=== PATIENT | female | born 1995 | race Caucasian/White ===

== ENCOUNTER 2020-08-26 09:37 | Outpatient (CLI) | payer BC, SELFPAY ==
[2020-08-26 10:06] LABS: Hematocrit 39.7 % (37.0-47.0); Hemoglobin 12.9 g/dL (12.0-15.0); Mean Corpuscular HGB Conc 32.5 g/dl (32-36); Mean Corpuscular Hemoglobin 28.9 pg (26-34); Mean Corpuscular Volume 88.8 fl (80-100); Mean Platelet Volume 8.9 fl (7.4-10.4); Platelet Count Result 376 k/mm3 (150-375); Red Blood Count 4.47 M/mm3 (4.2-5.4); Red Cell Distribution Width 12.4 % (11.5-14.5)
[2020-08-26 10:21] LABS: Alanine Aminotransferase 16 U/L (4-35); Albumin Level 4.3 g/dL (3.5-5.1); Alkaline Phosphatase 69 U/L (38-126); Anion Gap 9 mmol/L (8-16); Aspartate Amino Transferase 27 U/L (14-36); Bilirubin,Total 0.5 mg/dL (0.2-1.3); Blood Urea Nitrogen 7 mg/dL (7-17); CRP 0.8 mg/dL (<1.0); Calcium 9.4 mg/dL (8.4-10.2); Carbon Dioxide 24 mmol/L (22-30); Chloride 108 mmol/L (98-107); Estimated Glomerular Filt Rate > 60; Glucose 115 mg/dL (65-105); Potassium 3.9 mmol/L (3.4-5.0); Sodium 141 mmol/L (137-145)
[2020-08-26 10:32] LABS: Erythrocyte Sedimentation Rate 25 mm/hr (0-20)
== END 2020-08-26 09:38 | disposition home or self-care (01) ==
PROVIDERS: PCP Family Medicine; Visit Provider Nurse Practitioner Family
DX: K51.90 Ulcerative colitis, unspecified, without complications (principal)
CPT/HCPCS: 36415; 80053; 85027; 85652; 86140

== ENCOUNTER → 2020-11-27 01:49 | Outpatient (CLI) | payer BC, SELFPAY ==
[2020-11-28 14:52] LABS: SARS-CoV-2 RNA PCR Negative
== END ==
PROVIDERS: PCP Family Medicine; Visit Provider Internal Medicine Gastroenterology
DX: Z01.812 Encounter for preprocedural laboratory examination (principal); Z20.822 Contact with and (suspected) exposure to COVID-19
CPT/HCPCS: C9803; U0003; U0005

== ENCOUNTER 2020-12-01 01:07 | Day surgery (SDC) | payer BC, SELFPAY ==
[2020-11-19 15:18] VITALS: BMI 20.2
[2020-12-01 10:26] VITALS: BP 132/91; PULSE 128; RESP 14; TEMP 36.3; O2SAT 98; BMI 19.2
[2020-12-01] MEDS: LACTATED RINGERS 1,000 ML 150 ML IV CONT (10:32)
--- NOTE | 2020-12-01 10:51 | WPDANESEPPF ---
Anes - Initial Pre Proc Eval Procedure: Operation Date: 12/01/20 11:30 Proposed Procedures p Colonoscopy - Dave Thomas MD Date/Time: 12/01/20 10:51 Surgeon: Dave Thomas MD Pre Op Diagnosis: ulcerative colitis Patient Data Age: 25 Gender: F Height: 5 ft 3 in Weight: 49.3 kg Last Vital Signs Temp 97.3 F L 12/01/20 10:26 Pulse 128 H 12/01/20 10:26 Resp 14 12/01/20 10:26 BP 132/91 H 12/01/20 10:26 Pulse Ox 98 12/01/20 10:26 Allergies Allergy/AdvReac Type Severity Reaction Status Date / Time No Known Allergies Allergy Verified 12/01/20 10:24 Home Medications Medication Instructions Recorded Confirmed Type loratadine 10 mg tablet 10 mg PO DAILY 06/20/19 12/01/20 History multivitamin 1 tablet PO DAILY 06/20/19 12/01/20 History desogestrel-e.estradiol 0.15 1 tablet PO DAILY #84 tablet 05/27/20 12/01/20 Rx mg-0.02 mg(21)/e.estrad 0.01 mg(5) tablet mesalamine 1.2 gram tablet,delayed See Rx Instructions .ROUTE 06/25/20 12/01/20 Rx release .COMPLEX #180 tablet buspirone 5 mg tablet See Rx Instructions .ROUTE 09/21/20 12/01/20 Rx .COMPLEX #270 tablet Patient hx anesthesia problems: none Family hx anesthesia problems: none PMFSH Past Medical History Medical History (Updated 11/30/20 @ 13:07 by Andrew Rich DO) Chronic anxiety Dysmenorrhea Enterocolitis Ulcerative colitis Family History Family History Grandparent Diabetes mellitus Depression Family history of cardiovascular disease Cerebrovascular accident Family history of malignant neoplasm Breast cancer Ovarian cyst Father Hypertension Family history of elevated blood lipids Mother Hypertension Arthritis Psoriasis Social History Social History Smoking status: Never smoker Alcohol intake: current Drinks per week: 2 Living arrangements: alone Gender identity (if verbalized by the patient): Female Spiritual care concerns: No Anes - Eval Final PreProcedure Day of Procedure 12/01/20 10:51 Patient weight: normal Heart: regular rate and rhythm Lungs: clear to auscultation Airway: Mallampati scale class II Neurological: alert and oriented Last oral intake: >/= 8 hours ASA classification: II Emergent: no Anesthetic plan: proceed Anesthesia type and monitoring: general GIVS and standard monitoring Informed Consent: The patient's anesthetic plan and its attendant risks and benefits were discussed with the patient/family/POA. Questions were solicited and answers provided to the satisfaction of the patient/family/POA.
--- NOTE | 2020-12-01 11:43 | PM.HPGS ---
History of Present Illness History of Present Illness Consent: Risks, benefits, and alternatives have been discussed and questions answered. Patient agrees to proceed with procedure. Chief complaint: ulcerative colitis Narrative: Monet Rome is a 25 year old female with left sided UC diagnosed 2018 controlled with oral mesalamine, no acute issues Review of Systems Constitutional: Constitutional: Denies headache(s) and Denies weakness Eyes: Eyes: Denies blurry vision ENT: Reports Normal hearing present, Denies headache(s) and Denies neck pain Cardiovascular: Cardiovascular: Denies chest pain and Denies dyspnea Respiratory: Respiratory: Denies dyspnea Gastrointestinal: Gastrointestinal: Reports no additional gastrointestinal complaints Genitourinary: Genitourinary: Denies dysuria Musculoskeletal: Musculoskeletal: Denies neck pain Integumentary/Breasts: Skin/Breast: Denies dry skin Neurologic: Reports Normal hearing present, Denies headache(s) and Denies weakness Psychiatric: Psychiatric: Denies anxiety Endocrine: Endocrine: Denies change in body appearance Hematologic/Lymphatic: Hematologic/Lymphatic: Denies easy bleeding Allergic/Immunologic: Allergic/Immunologic: Denies urticaria PMF Past Medical History Medical History (Updated 12/01/20 @ 11:45 by Dave Thomas MD) Chronic anxiety Dysmenorrhea Enterocolitis Left sided ulcerative colitis Ulcerative colitis Family History Family History Grandparent Diabetes mellitus Depression Family history of cardiovascular disease Cerebrovascular accident Family history of malignant neoplasm Breast cancer Ovarian cyst Father Hypertension Family history of elevated blood lipids Mother Hypertension Arthritis Psoriasis Social History Social History Smoking status: Never smoker Alcohol intake: current Drinks per week: 2 Living arrangements: alone Gender identity (if verbalized by the patient): Female Spiritual care concerns: No Meds Home Medications and Allergies Home Medications Medication Instructions Recorded Confirmed Type loratadine 10 mg tablet 10 mg PO DAILY 06/20/19 12/01/20 History multivitamin 1 tablet PO DAILY 06/20/19 12/01/20 History desogestrel-e.estradiol 0.15 1 tablet PO DAILY #84 tablet 05/27/20 12/01/20 Rx mg-0.02 mg(21)/e.estrad 0.01 mg(5) tablet mesalamine 1.2 gram tablet,delayed See Rx Instructions .ROUTE 06/25/20 12/01/20 Rx release .COMPLEX #180 tablet buspirone 5 mg tablet See Rx Instructions .ROUTE 09/21/20 12/01/20 Rx .COMPLEX #270 tablet Allergies Allergy/AdvReac Type Severity Reaction Status Date / Time No Known Allergies Allergy Verified 12/01/20 10:24 Vital Signs Vital Signs - 24 hr 12/01/20 10:26 Temperature 97.3 F L Pulse Rate 128 H Respiratory Rate 14 Blood Pressure 132/91 H Pulse Oximetry 98 Exam Const: General: comfortable and no acute distress HENMT: General nose exam: Normal nares present Eyes: General: appearance normal, both eyes and all related structures Neck: Neck: no JVD Resp: Auscultation: clear to auscultation bilaterally Cardio: Rate: regular rate Rhythm: regular rhythm GI: Inspection: non-distended GI Palp: Yes Soft to palpation Skin: General skin exam: normal color Neuro: General: gait normal Speech: normal speech Extrem: General: normal to inspection Psych: Mental Status: mental status grossly normal Assessment and Plan Assessment and plan (1) Left sided ulcerative colitis: Code(s): K51.50 - Left sided colitis without complications Status: Acute Assessment and Plan: colonoscopy to assess mucosa, on medication with control of symptoms
[2020-12-01 11:45] VITALS: BP 91/62; PULSE 97; RESP 22; O2SAT 97
[2020-12-01 11:55] VITALS: BP 107/62; PULSE 88; RESP 25; O2SAT 95
[2020-12-01 12:05] VITALS: BP 101/64; PULSE 100; RESP 27; O2SAT 100
== END 2020-12-01 12:13 | disposition home or self-care (01) ==
PROVIDERS: PCP Family Medicine; Visit Provider Internal Medicine Gastroenterology
PROC: 0DJD8ZZ Inspection of Lower Intestinal Tract, Via Natural or Artificial Opening Endoscopic (ICD-10-PCS; CPT 45378; principal; 2020-12-01 11:30)
DX: K51.50 Left sided colitis without complications (principal); D12.4 Benign neoplasm of descending colon; K64.8 Other hemorrhoids; F41.9 Anxiety disorder, unspecified
CPT/HCPCS: 45380; 88305; C9803; J2704; J7120; U0003; U0005

== ENCOUNTER 2021-02-22 09:27 | Outpatient (CLI) | payer BC, SELFPAY ==
[2021-02-22 10:05] LABS: Hematocrit 42.5 % (37.0-47.0); Hemoglobin 13.7 g/dL (12.0-15.0); Mean Corpuscular HGB Conc 32.2 g/dl (32-36); Mean Corpuscular Hemoglobin 28.2 pg (26-34); Mean Corpuscular Volume 87.4 fl (80-100); Mean Platelet Volume 9.3 fl (7.4-10.4); Platelet Count Result 389 k/mm3 (150-375); Red Blood Count 4.86 M/mm3 (4.2-5.4); Red Cell Distribution Width 12.3 % (11.5-14.5)
[2021-02-22 10:24] LABS: Alanine Aminotransferase 18 U/L (4-35); Albumin Level 4.6 g/dL (3.5-5.1); Alkaline Phosphatase 75 U/L (38-126); Anion Gap 13 mmol/L (8-16); Aspartate Amino Transferase 28 U/L (14-36); Bilirubin,Total 0.8 mg/dL (0.2-1.3); Blood Urea Nitrogen 9 mg/dL (7-17); Carbon Dioxide 23 mmol/L (22-30); Chloride 104 mmol/L (98-107); Estimated Glomerular Filt Rate > 60; Glucose 107 mg/dL (65-110); Potassium 4.2 mmol/L (3.4-5.0); Sodium 140 mmol/L (137-145)
[2021-02-22 11:36] LABS: Erythrocyte Sedimentation Rate 35 mm/hr (0-20)
== END 2021-02-22 09:28 | disposition home or self-care (01) ==
LOC: ANHLAB 09:31
PROVIDERS: PCP Family Medicine; Visit Provider Nurse Practitioner Family
DX: K51.50 Left sided colitis without complications (principal)
CPT/HCPCS: 36415; 80053; 85027; 85652; 86140

== ENCOUNTER 2021-08-23 07:05 | Outpatient (CLI) | payer OTHER, SELFPAY ==
[2021-08-23 08:27] LABS: Alanine Aminotransferase 17 U/L (4-35); Albumin Level 4.2 g/dL (3.5-5.1); Alkaline Phosphatase 93 U/L (38-126); Anion Gap 5 mmol/L (8-16); Aspartate Amino Transferase 25 U/L (14-36); Bilirubin,Total 0.5 mg/dL (0.2-1.3); Blood Urea Nitrogen 8 mg/dL (7-17); CRP 1.5 mg/dL (<1.0); Carbon Dioxide 24 mmol/L (22-30); Chloride 107 mmol/L (98-107); Estimated Glomerular Filt Rate > 60; Glucose 102 mg/dL (65-110); Potassium 3.4 mmol/L (3.4-5.0); Sodium 136 mmol/L (137-145)
[2021-08-23 08:51] LABS: Hematocrit 38.3 % (37.0-47.0); Hemoglobin 12.6 g/dL (12.0-15.0); Mean Corpuscular HGB Conc 32.9 g/dl (32-36); Mean Corpuscular Hemoglobin 28.5 pg (26-34); Mean Corpuscular Volume 86.7 fl (80-100); Mean Platelet Volume 9.6 fl (7.4-10.4); Platelet Count Result 380 k/mm3 (150-375); Red Blood Count 4.42 M/mm3 (4.2-5.4); Red Cell Distribution Width 12.3 % (11.5-14.5); White Blood Count 7.9 K/mm3 (4.5-10.0)
[2021-08-23 11:31] LABS: Erythrocyte Sedimentation Rate 23 mm/hr (0-20)
== END 2021-08-23 07:06 | disposition home or self-care (01) ==
PROVIDERS: PCP Family Medicine; Visit Provider Internal Medicine Gastroenterology
DX: K51.50 Left sided colitis without complications (principal)
CPT/HCPCS: 36415; 80053; 85027; 85652; 86140

== ENCOUNTER 2022-03-24 16:03 | Outpatient (CLI) | payer OTHER, SELFPAY ==
[2022-03-24 16:32] LABS: Hematocrit 38.2 % (37.0-47.0); Hemoglobin 12.5 g/dL (12.0-15.0); Mean Corpuscular HGB Conc 32.7 g/dl (32-36); Mean Corpuscular Hemoglobin 28.7 pg (26-34); Mean Corpuscular Volume 87.8 fl (80-100); Mean Platelet Volume 8.9 fl (7.4-10.4); Platelet Count Result 320 k/mm3 (150-375); Red Blood Count 4.35 M/mm3 (4.2-5.4); Red Cell Distribution Width 12.6 % (11.5-14.5); White Blood Count 7.6 K/mm3 (4.5-10.0)
[2022-03-24 16:46] LABS: Alanine Aminotransferase 16 U/L (6-35); Albumin Level 4.4 g/dL (3.5-5.1); Alkaline Phosphatase 96 U/L (38-126); Anion Gap 15 mmol/L (8-16); Aspartate Amino Transferase 24 U/L (14-36); Bilirubin,Total 0.3 mg/dL (0.2-1.3); Blood Urea Nitrogen 6 mg/dL (7-17); Calcium 8.5 mg/dL (8.4-10.2); Carbon Dioxide 23 mmol/L (22-30); Chloride 102 mmol/L (98-107); Estimated Glomerular Filt Rate > 60; Glucose 103 mg/dL (65-110); Potassium 3.7 mmol/L (3.4-5.0); Sodium 140 mmol/L (137-145)
== END 2022-03-24 16:04 | disposition home or self-care (01) ==
LOC: ANHLAB 16:04
PROVIDERS: PCP Family Medicine; Visit Provider Nurse Practitioner Family
DX: K51.50 Left sided colitis without complications (principal)
CPT/HCPCS: 36415; 80053; 85027

== ENCOUNTER 2022-09-15 15:18 | Outpatient (CLI) | payer OTHER, SELFPAY ==
[2022-09-15 15:32] LABS: Hematocrit 40.9 % (37.0-47.0); Hemoglobin 13.5 g/dL (12.0-15.0); Mean Corpuscular Hemoglobin 28.7 pg (26-34); Mean Corpuscular Volume 86.8 fl (80-100); Mean Platelet Volume 9.2 fl (7.4-10.4); Platelet Count Result 374 k/mm3 (150-375); Red Blood Count 4.71 M/mm3 (4.2-5.4); Red Cell Distribution Width 12.4 % (11.5-14.5)
[2022-09-15 15:46] LABS: Alanine Aminotransferase 22 U/L (6-35); Albumin Level 4.8 g/dL (3.5-5.1); Alkaline Phosphatase 86 U/L (38-126); Anion Gap 7 mmol/L (8-16); Aspartate Amino Transferase 27 U/L (14-36); Bilirubin,Total 0.8 mg/dL (0.2-1.3); Blood Urea Nitrogen 9 mg/dL (7-17); Calcium 9.2 mg/dL (8.4-10.2); Carbon Dioxide 27 mmol/L (22-30); Chloride 101 mmol/L (98-107); Estimated Glomerular Filt Rate > 60; Glucose 133 mg/dL (65-110); Potassium 3.7 mmol/L (3.4-5.0); Sodium 135 mmol/L (137-145)
[2022-09-15 15:51] LABS: CRP 0.9 mg/dL (<1.0)
[2022-09-15 16:32] LABS: Erythrocyte Sedimentation Rate 25 mm/hr (0-20)
== END 2022-09-15 15:19 | disposition home or self-care (01) ==
LOC: ANHLAB 15:19
PROVIDERS: PCP Family Medicine; Visit Provider Nurse Practitioner Family
DX: K51.50 Left sided colitis without complications (principal)
CPT/HCPCS: 36415; 80053; 85027; 85652; 86140

== ENCOUNTER 2022-09-28 16:26 | Outpatient (CLI) | payer OTHER, SELFPAY ==
[2022-10-09 01:17] LABS: Calprotectin, Stool 7 mcg/g
== END 2022-09-28 16:27 | disposition home or self-care (01) ==
LOC: ANHLAB 16:27
PROVIDERS: PCP Family Medicine; Visit Provider Nurse Practitioner Family
DX: K51.50 Left sided colitis without complications (principal)
CPT/HCPCS: 83993

== ENCOUNTER 2023-03-19 08:51 | Outpatient (CLI) | payer OTHER, SELFPAY ==
[2023-03-19 10:39] LABS: Alanine Aminotransferase 26 U/L (6-35); Albumin Level 4.6 g/dL (3.5-5.1); Alkaline Phosphatase 83 U/L (38-126); Anion Gap 8 mmol/L (8-16); Aspartate Amino Transferase 35 U/L (14-36); Bilirubin,Total 1.1 mg/dL (0.2-1.3); Blood Urea Nitrogen 8 mg/dL (7-17); Calcium 9.3 mg/dL (8.4-10.2); Carbon Dioxide 27 mmol/L (22-30); Chloride 102 mmol/L (98-107); Estimated Glomerular Filt Rate > 60; Glucose 92 mg/dL (65-110); Potassium 3.9 mmol/L (3.4-5.0); Sodium 137 mmol/L (137-145)
[2023-03-19 10:56] LABS: Hematocrit 40.2 % (37.0-47.0); Mean Corpuscular HGB Conc 32.3 g/dl (32-36); Mean Corpuscular Hemoglobin 28.9 pg (26-34); Mean Corpuscular Volume 89.3 fl (80-100); Mean Platelet Volume 9.6 fl (7.4-10.4); Platelet Count Result 356 k/mm3 (150-375); Red Cell Distribution Width 12.3 % (11.5-14.5); White Blood Count 5.6 K/mm3 (4.5-10.0)
[2023-03-19 11:43] LABS: Erythrocyte Sedimentation Rate 17 mm/hr (0-20)
== END 2023-03-19 08:52 | disposition home or self-care (01) ==
LOC: ANHLAB 08:52
PROVIDERS: PCP Physician Assistant; Visit Provider Nurse Practitioner Family
DX: K51.50 Left sided colitis without complications (principal)
CPT/HCPCS: 36415; 80053; 85027; 85652; 86140

== ENCOUNTER 2025-01-21 00:13 | Day surgery (SDC) | payer OTHER, SELFPAY ==
[2024-12-31 14:31] VITALS: BMI 23.0
--- OUTSIDE RECORDS SUMMARY | 2025-01-21 00:16 | XMS_ITS | Continuity of Care Document ---
Author Organization [facility] cine Address [address] [place] [address] Phone Care Team Providers Care Wire Coiler Name Role Phone Unavailable Unavailable Unavailable Allergies, Adverse Reactions, Alerts Substance Reaction Status Criticality pollen extracts Active No Informati on Medications Medication Instructions Dosage Effective Dates (start - stop) Status Comments Azurette (28) 0.15 mg-0.02 mg (21)/0.01 mg (5) tablet take 1 tablet by oral route every day 1.00 tablet - Active azithromycin 250 mg tablet take 2 tablet by oral route every day for 1 day then 1 tablet (250 mg) by oral route once daily for 4 days 500 MG - No Longer Active Procedures Procedure Date Decadron Dexamethasone sodium phos Per 1 Mg Inj NOC Kenalog Triamcinolone acetonide Inj Per 10mg THER/PROPH/DIAG INJ, SC/IM OFFICE/OUTPATIENT VISIT, EST OFFICE/OUTPATIENT VISIT, EST OFFICE/OUTPATIENT VISIT, NEW Advance Directives Directive Yes / No Effective Date File Name No Information Encounters Encounter Description Practice Location Reason(s) For Visit Diagnoses Date Provider Providers Copied on Encounter OFFICE/OUTPAT IENT VISIT, EST [facility], [address], [place], [id number], [place] tel:[phone] [facility] sinus symptoms (chief complaint) Acute sinusitis 6 No Information Referring Provider: Abraham Price, [address] [place], [address] . tel:[phone] OFFICE/OUTPAT IENT VISIT, [facility], [facility] [address], [place], [id number], tel:[phone] [facility] abdominal pain (chief complaint) Anxiety 6 Deborah Rosario. [address] [place] [address], [id number], [place]. tel:[phone] Referring Provider: Abraham Price, [address] [place] [address], [address] . tel:[phone] OFFICE/OUTPAT IENT VISIT, [facility], [address] [place] [address], [id number], tel:[phone] [facility] hit head (chief complaint) Open wound of scalp 5 Simin Vega. [address] [place] [address], [id number], . tel:[phone] Referring Provider: Abraham Price, [address] [place] [address], [address] . tel:[phone] Family History Family Member Type Diagnosis Age At Onset No Information Payers Payer name Insurance type Covered democrat ID [place] nguyen(s) [facility] [id number] Social History Type Description Quantity Date Captured Comments Alcohol Use Details beer & liquor 1 drink weekly 16 Caffeine Use Details coffee 2 cups per day Tobacco Use Status No Information Smoking Status Never smoker Non-Smoking Tobacco Use Details : No Details Available : No Details Available Sex Female Vital Signs Date / Time: Height Weight BMI Pulse Rate Blood Pressure Temperature Respiratory Rate Body Surface Area Head Circumference Head Circ. Percentile Wt./Terry. Percentile BMI percentile Pulse Ox Inhaled Ox 5:14 PM 64.00 in 48.135 kg (106.12 lbs) 18.2 2 kg/m eter (2) 115 /min 102/60 mm[Hg] 99.90 F 99 % Chief Complaint And Reason For Visit From encounter dated '06/28/2016 17:05'. sinus symptoms (chief complaint). Description: Onset: 1 Day. The severity of the problem is moderate. Pain Scale: 5/10. The problem has worsened. The symptoms are constant. Both sides are affected. Pertinent/initial symptoms include facial pressure, sinus congestion and sinus pressure. Symptoms areassociated with recurrent sinus infections. Symptoms are not associated with asthma, dental infection, environmental allergies or recent URI. Aggravating factors include lying down. Denies relieving factors. Associated symptoms include cough, otalgia, postnasal drainage, rhinorrhea, sinus pressure,sore throat, tooth pain and tooth sensitivity. Pertinent negatives include anosmia, dental disease, deviated septum, fever, halitosis, headache, immunosuppression, nasal drainage, nasal obstruction or orbital swelling. Reason For Referral Reason For Referral No Information History Of Present Illness Encounter Date Complaint History Of Prese nt Illness sinus symptoms Onset: 1 Day. Th e severity of the problem is moderate. Pain Scale: 5/10. The problem has worsened. The symptoms are constant. Both sides are affected. Pertinent/initial symptoms include facial pressure, sinus congestion and sinus pressure. Symptoms are associated with recurrent sinus infections. Symptoms are not associated with asthma, dental infection, environmental allergies or recent URI. Aggravating factors include lying down. Denies relieving factors. Associated symptoms include cough, otalgia, postnasal drainage, rhinorrhea, sinus pressure, sore throat, tooth pain and tooth sensitivity. Pertinent negatives include anosmia, dental disease, deviated septum, fever, halitosis, headache, immunosuppression, nasal drainage, nasal obstruction or orbital swelling. abdominal pain Onset: 5 Days. T he severity of the problem is moderate. Pain scale: 5/10. The problem has not changed. The symptoms are constant. The location is hypogastric. The quality of the pain is achy. These symptoms occur after bowel movement. These symptoms do not occur with menses. Aggravating factors include anxiety and constipation. Symptoms are relieved by rest and heat. Associated symptoms include blood in stool and constipation. Pertinent negatives include back pain, change in appetite, diarrhea, fever, flank pain, nausea and vomiting. hit head The symptoms beg an 20 minutes ago. The symptoms are reported as being moderate. The symptoms occur constantly. The location is top right of head. Aggravating factors include pressure, touch. Relieving factors include nothing. Associated symptoms include bleeding. She states the symptoms are acute and are of new onset. THIS IS A WORKMANS COMP CLAIM. Pt. was in the bathroom at the [facility] and when she stood up she struck her head on a hand dryer. She applied pressure at the [facility] to stop the bleeding and then immediately left for urgent care and was here within 20 minutes. Pt. had dried blood in her hair on the top right side of her head but was not actively bleeding at this time. Pt denies head pressure, neck pain, nausea, vomiting, dizziness, blurred vision, loss of balance, light sensitivity, noise sensitivity, concentration issues, memory deficits, fatigue, confusion, drowsiness, irritability or sleepiness. GCS 15 Functional Status Date Functional Assessmen t Pain Score 5/10 Instructions Date Instruction Additional Infor mation z endy as / 40 decadron/kenalog given in left hip, site prepped with alcohol and sterile adhesive applied. Pt tolerated procedure without complaint.Maintain hydrationFU with PCP if symptoms do not resolveVoiced understanding Related to Acute sinusitis Pt presented today w ith abdominal cramping and blood in stool. Pt has hx of rectal/anal tears and thinks her cramping is due to anxiety. Vitals taken and are stable but hr was elevated. Pt examined and provider prescribed vistaril 25mg and pt was told to f/u with PCP when she gets home in a week and a half. Pt to notify PCP if Vistaril helps with the cramping or not and to call us if condition worsens within the next week. Pt understands, agrees, and has no further questions. Related to Anxiety Wound was cleansed w ith Chlorhexidine 4% to base of wound. Wound was superficial on examination and angel were not necessary. Pressure was applied to wound until bleeding was controlled. Patient was given the following instructions: she was to rest today. She may take Tylenol for pain and may use ice to the affected area. She is to be monitored for the next 24 hours for red flags such as the following: worsening headache, vomiting, vision changes, memory deficits, speech difficulties or excessive fatigue. If these develop she is to RTC or seek emergency care. Patient agrees to plan and has no further questions at this time. Related to Open wound of scalp Assessments Type Assessment Date assessment Acute sinusitis impression Patient has frontal and maxillary sincus pressure/tenderness. She denies a sore throat. Ears have excess cerumen in them. LCTA HRR [place] warm and dry. Alert and age appropriate. Mental Status Date Cognitive Assessment Orientation - [place] ed to time, place, person, situation. Patient Care Teams Name Effective Dates (start - stop) Status Members No Information
--- NOTE | 2025-01-21 04:24 | P.PNAN_ITS ---
Anes - Initial Pre Proc Eval Procedure: Operation Date: 01/21/25 08:30 Proposed Procedures p Colonoscopy - Andre Louis MD Date/Time: 01/21/25 04:24 Surgeon: Andre Louis MD Pre Op Diagnosis: Left sided colitis without complications Patient Data Age: 29 Gender: F Height: 1.6 m Weight: 58.97 kg Allergies Allergy/AdvReac Type Severity Reaction Status Date / Time No Known Allergies Allergy Verified 01/21/25 07:02 Home Medications ?Medication ?Instructions ?Recorded ?Confirmed ?Type loratadine 10 mg tablet (Claritin) 10 mg PO DAILY 06/20/19 01/21/25 History multivitamin 1 tablet PO DAILY 06/20/19 01/21/25 History desogestrel-e.estradiol 0.15 See Rx Instructions .Route 07/09/24 01/21/25 Rx mg-0.02 mg(21)/e.estrad 0.01 mg(5) .COMPLEX #84 tabs tablet (Volnea (28)) sertraline 25 mg tablet 25 mg PO DAILY #90 tabs 07/09/24 01/21/25 Rx etrasimod 2 mg tablet (Velsipity) 2 mg PO DAILY #30 tabs 10/27/24 01/21/25 Rx Patient hx anesthesia problems: none Family hx anesthesia problems: none Results Review: All pre-operative results and documents have been reviewed as part of the pre- operative evaluation. [facility] Past Medical History Medical History Elevated erythrocyte sedimentation rate Elevated LFTs Bloody diarrhea Hx of adenomatous colonic polyps Dysmenorrhea Left sided ulcerative colitis Chronic anxiety Enterocolitis Dysmenorrhea Family History Family History Grandparent Diabetes mellitus Depression Family history of cardiovascular disease Cerebrovascular accident Family history of malignant neoplasm Breast cancer Ovarian cyst Father Hypertension Family history of elevated blood lipids Mother Hypertension Arthritis Psoriasis Social History Social History Smoking status: Never smoker Alcohol intake: current Drinks per week: 4 Alcohol use details: Wine Substance use: current Substance use type: marijuana Other substance usage details: 2X week, gummies Lack of Transportation: No Lack of Food: Never True Current Housing: I Have Housing Concerned About Future Housing: No Difficulty Paying Gas/Electric Bills: No Difficulty Paying for Meds: No Currently Unemployed: No Education: Bachelor's Degree Difficulty w/ Childcare or Family Care: No Living arrangements: with family Gender identity (if verbalized by the patient): Female Spiritual care concerns: No Anes - Eval Final PreProcedure Day of Procedure 01/21/25 04:24 Patient weight: normal Heart: regular rate and rhythm Lungs: clear to auscultation and normal air movement Airway: Mallampati scale class II Neurological: alert and oriented Last oral intake: >/= 8 hours ASA classification: III Emergent: no Anesthetic plan: proceed Anesthesia type and monitoring: general GIVS and standard monitoring Results Review: All pre-operative results and documents have been reviewed as part of the pre- operative evaluation. Informed Consent: The patient's anesthetic plan and its attendant risks and benefits were discussed with the patient/family/POA. Questions were solicited and answers provided to the satisfaction of the patient/family/POA.
[2025-01-21 07:03] VITALS: BP 157/96; PULSE 110; RESP 18; TEMP 36.9; O2SAT 98; BMI 22.4
[2025-01-21 07:08] LABS: BEDSIDEPREGUCG Negative (Negative)
[2025-01-21] MEDS: LACTATED RINGERS 1,000 ML 150 ML IV CONT (07:12)
--- NOTE | 2025-01-21 07:56 | PM.IMHP ---
H&P: HPI History of Present Illness Date/Time: 01/21/25 07:56 Chief Complaint: History of ulcerative colitis Narrative: the patient has a diagnosis of ulcerative colitis since age 22, currently well controlled with Etrasimod (Velsipity). she is here for colonoscopy. Review of Systems Review of Systems: All systems reviewed & are unremarkable except as noted in HPI and below PMFSH Past Medical History Medical History Elevated erythrocyte sedimentation rate Elevated LFTs Bloody diarrhea Hx of adenomatous colonic polyps Dysmenorrhea Left sided ulcerative colitis Chronic anxiety Enterocolitis Dysmenorrhea Family History Family History Grandparent Diabetes mellitus Depression Family history of cardiovascular disease Cerebrovascular accident Family history of malignant neoplasm Breast cancer Ovarian cyst Father Hypertension Family history of elevated blood lipids Mother Hypertension Arthritis Psoriasis Social History Social History Smoking status: Never smoker Alcohol intake: current Drinks per week: 4 Alcohol use details: Wine Substance use: current Substance use type: marijuana Other substance usage details: 2X week, gummies Lack of Transportation: No Lack of Food: Never True Current Housing: I Have Housing Concerned About Future Housing: No Difficulty Paying Gas/Electric Bills: No Difficulty Paying for Meds: No Currently Unemployed: No Education: Bachelor's Degree Difficulty w/ Childcare or Family Care: No Living arrangements: with family Gender identity (if verbalized by the patient): Female Spiritual care concerns: No Meds Home Medications and Allergies Home Medications ?Medication ?Instructions ?Recorded ?Confirmed ?Type loratadine 10 mg tablet (Claritin) 10 mg PO DAILY 06/20/19 01/21/25 History multivitamin 1 tablet PO DAILY 06/20/19 01/21/25 History desogestrel-e.estradiol 0.15 See Rx Instructions .Route 07/09/24 01/21/25 Rx mg-0.02 mg(21)/e.estrad 0.01 mg(5) .COMPLEX #84 tabs tablet (Volnea (28)) sertraline 25 mg tablet 25 mg PO DAILY #90 tabs 07/09/24 01/21/25 Rx etrasimod 2 mg tablet (Velsipity) 2 mg PO DAILY #30 tabs 10/27/24 01/21/25 Rx Allergies Allergy/AdvReac Type Severity Reaction Status Date / Time No Known Allergies Allergy Verified 01/21/25 07:02 Vital Signs Vital Signs - 24 hr 01/21/25 07:03 Temperature 98.5 F Pulse Rate 110 H Respiratory Rate 18 Blood Pressure 157/96 H Pulse Oximetry 98 Oxygen Delivery Room Air Exam Const: General: cooperative and healthy appearing Resp: Effort & Inspection: normal respiratory effort and able to speak in complete sentences Auscultation: clear to auscultation bilaterally Cardio: Rate: regular rate Rhythm: regular rhythm GI: Inspection: normal to inspection GI Palp: No No hepatosplenomegaly present Auscultation: normal bowel sounds Rectal Exam: deferred Skin: General skin exam: normal color Psych: Appearance: grossly normal Mental Status: mental status grossly normal Assessment and Plan Assessment and plan (1) Left sided ulcerative colitis: Qualifiers: Digestive disease complication type: without complication Qualified Code(s): K51.50 - Left sided colitis without complications Code(s): K51.50 - Left sided colitis without complications Status: Acute Assessment and Plan: The patient is deemed a good candidate for the procedure. Consent signed. Will proceed.
[2025-01-21 08:18] VITALS: BP 103/58; PULSE 75; RESP 17; O2SAT 99
[2025-01-21 08:28] VITALS: BP 104/57; PULSE 64; RESP 16; O2SAT 100
[2025-01-21 08:38] VITALS: BP 125/81; PULSE 69; RESP 20; O2SAT 100
== END 2025-01-21 08:53 | disposition home or self-care (01) ==
PROVIDERS: Anesthesiology; PCP Family Medicine; Referring Provider Nurse Practitioner Family; Visit Provider Internal Medicine Gastroenterology
PROC: 0DJD8ZZ Inspection of Lower Intestinal Tract, Via Natural or Artificial Opening Endoscopic (ICD-10-PCS; CPT 45378; principal; 2025-01-21 08:30)
DX: K51.50 Left sided colitis without complications (principal); K51.40 Inflammatory polyps of colon without complications; F12.90 Cannabis use, unspecified, uncomplicated
CPT/HCPCS: 45378; J2704; J7120